=== PATIENT | male | born 1965 | race African-American/Black ===

== ENCOUNTER 2018-11-09 00:10 | Inpatient (IN) | payer MEDICAID ==
[~2018-11-09] VITALS: Ht 188 cm; Wt 98.0 kg
[2018-11-09] MEDS ORDERED: SODIUM CHLORIDE 0.9% 1,000 ML IV ONE (02:49)
[2018-11-09] MEDS ORDERED: ONDANSETRON HCL 4MG/2ML INJ IV STA (02:49)
[2018-11-09] MEDS ORDERED: MORPHINE SULFATE 4 MG/ML CPJ (NOT FOR IM USE) IV STA (02:49)
[2018-11-09 03:13] LABS: BASOPHILS % 0.9 % (0.0-2.0); EOSINOPHILS % 0.6 % (0.0-5.0); HEMATOCRIT. 45.7 % (42.0-52.0); HEMOGLOBIN. 14.6 g/dL (14.0-18.0); LYMPHOCYTES % 11.5 % (20.0-50.0); MEAN CORPUSCULAR HEMOGLOBIN 31.2 pg (28.0-32.0); MEAN CORPUSCULAR VOLUME 97.5 fL (80.0-94.0); MONOCYTES % 13.5 % (2.0-8.0); NEUTROPHILS % 73.5 % (40.0-76.0); PLATELET 120 x1000/uL (130-400); RED BLOOD CELL COUNT 4.69 mill/uL (4.7-6.1); RED CELL DISTRIBUTION WIDTH 13.1 % (11.6-14.6)
[2018-11-09 04:26] LABS: CHLORIDE 106 mEq/L (98-107)
[2018-11-09] MEDS ORDERED: CLONIDINE 0.2MG TABLET PO ONE (05:00)
[2018-11-09] MEDS ORDERED: MORPHINE SULFATE 4 MG/ML CPJ (NOT FOR IM USE) IV ONE (06:00)
[2018-11-09 09:45] VITALS: BP 138/96
[2018-11-09] MEDS ORDERED: ACETAMINOPHEN 325MG TABLET PO PRN (10:15)
[2018-11-09] MEDS ORDERED: DOCUSATE SODIUM 100MG CAPSULE PO PRN (10:15)
[2018-11-09] MEDS ORDERED: NITROGLYCERIN 0.4MG TABLET SL SL PRN (10:15)
[2018-11-09] MEDS ORDERED: GUAIFENESIN 200MG/10ML SUGAR FREE UDC PO PRN (10:15)
[2018-11-09] MEDS ORDERED: IPRATROPIUM/ALBUTEROL 0.5-3(2.5)MG/3ML NEB INH PRN (10:15)
[2018-11-09] MEDS: FAMOTIDINE 20MG TABLET PO SCH (11:01)
[2018-11-09] MEDS: ENOXAPARIN 40MG/0.4ML SYR SUBCUT SCH (11:02)
[2018-11-09] MEDS: AMLODIPINE 10MG TABLET PO SCH (11:02)
[2018-11-09] MEDS: TRAMADOL 50MG TABLET PO PRN (11:04)
[2018-11-09 12:00] VITALS: BP 177/101
[2018-11-09] MEDS: PIPERACILLIN/TAZ 3.375G PREMIX 50 ML IV SCH ×2 (12:04→20:37)
[2018-11-09] MEDS: CLONIDINE 0.1MG TABLET PO PRN ×2 (12:04→18:18)
[2018-11-09 13:00] LABS: *AMPHETAMINES SCREEN URINE NEGATIVE (NEGATIVE); *BARBITURATES SCREEN URINE NEGATIVE (NEGATIVE); *BENZODIAZEPINES SCREEN URINE NEGATIVE (NEGATIVE); *COCAINE SCREEN URINE PRESUMTIVE POSITIVE (NEGATIVE); METHADONE URINE SCREEN NEGATIVE (NEGATIVE); OPIATES URINE SCREEN NEGATIVE (NEGATIVE)
[2018-11-09 13:01] LABS: CANNABINOID URINE SCREEN PRESUMTIVE POSITIVE (NEGATIVE); PHENCYCLIDINE URINE SCREEN NEGATIVE (NEGATIVE)
[2018-11-09] MEDS ORDERED: SODIUM POLYSTYRENE SULFONATE 15 G/60 ML BOT PO NR (14:00)
[2018-11-09] MEDS: HYDRALAZINE HCL 50MG TABLET PO SCH ×2 (14:06→21:00)
[2018-11-09] MEDS: MORPHINE SULFATE 4 MG/ML CPJ (NOT FOR IM USE) IV PRN ×2 (15:28→20:59)
[2018-11-09 16:00] VITALS: BP_SYST 111; BP_SYST 191; BP_DIAS 116
[2018-11-09] MEDS ORDERED: MINOXIDIL 2.5MG TABLET PO SCH (17:15)
[2018-11-09 20:00] VITALS: BP 215/140
[2018-11-09] MEDS: METOPROLOL TARTRATE 25MG TABLET PO SCH (20:38)
[2018-11-09] MEDS: ASCORBIC ACID 500 MG TABLET PO SCH (20:39)
[2018-11-09] MEDS: ZOLPIDEM TARTRATE 5MG TABLET PO PRN (20:58)
[2018-11-09] MEDS: ONDANSETRON HCL 4MG/2ML INJ IV PRN (23:14)
[2018-11-10] VITALS: BP 226/129
[2018-11-10] MEDS: MORPHINE SULFATE 4 MG/ML CPJ (NOT FOR IM USE) IV PRN ×2 (01:02→05:05)
[2018-11-10] MEDS: CLONIDINE 0.1MG TABLET PO PRN (01:03)
[2018-11-10] MEDS ORDERED: CLONIDINE 0.2MG TABLET PO PRN (01:30)
[2018-11-10 04:00] VITALS: BP 206/144
[2018-11-10] MEDS: PIPERACILLIN/TAZ 3.375G PREMIX 50 ML IV SCH ×3 (04:50→20:24)
[2018-11-10] MEDS: HYDRALAZINE HCL 50MG TABLET PO SCH ×3 (05:06→22:46)
[2018-11-10] MEDS: ONDANSETRON HCL 4MG/2ML INJ IV PRN ×3 (05:21→20:25)
[2018-11-10] MEDS ORDERED: CLONIDINE 0.3MG TABLET PO PRN (06:45)
[2018-11-10] MEDS: AMLODIPINE 10MG TABLET PO SCH (07:32)
[2018-11-10 08:00] VITALS: BP 203/107
[2018-11-10] MEDS: ASCORBIC ACID 500 MG TABLET PO SCH ×2 (10:09→20:25)
[2018-11-10] MEDS: ENOXAPARIN 40MG/0.4ML SYR SUBCUT SCH (10:09)
[2018-11-10] MEDS: METOPROLOL TARTRATE 25MG TABLET PO SCH ×2 (10:12→20:25)
[2018-11-10] MEDS: MINOXIDIL 10MG TABLET PO SCH ×2 (10:29→17:47)
[2018-11-10 12:00] VITALS: BP 198/102
[2018-11-10] MEDS: FAMOTIDINE 20MG TABLET PO SCH (12:16)
[2018-11-10 16:00] VITALS: BP 188/89
[2018-11-10] MEDS: TRAMADOL 50MG TABLET PO PRN (17:47)
[2018-11-10 20:00] VITALS: BP 198/120
[2018-11-10] MEDS: ZOLPIDEM TARTRATE 5MG TABLET PO PRN (20:44)
[2018-11-10] MEDS ORDERED: DOXAZOSIN MESYLATE 4MG TABLET PO SCH (21:00)
[2018-11-11] VITALS: BP 134/94
[2018-11-11] MEDS: TRAMADOL 50MG TABLET PO PRN ×3 (00:17→14:10)
[2018-11-11 04:00] VITALS: BP 141/101
[2018-11-11] MEDS: PIPERACILLIN/TAZ 3.375G PREMIX 50 ML IV SCH ×2 (04:34→12:11)
[2018-11-11] MEDS: HYDRALAZINE HCL 50MG TABLET PO SCH ×2 (06:13→14:09)
[2018-11-11] MEDS: MINOXIDIL 10MG TABLET PO SCH (06:13)
[2018-11-11 08:00] VITALS: BP 133/78
[2018-11-11] MEDS: FAMOTIDINE 20MG TABLET PO SCH (09:22)
[2018-11-11] MEDS: METOPROLOL TARTRATE 25MG TABLET PO SCH (09:23)
[2018-11-11] MEDS: AMLODIPINE 10MG TABLET PO SCH (09:23)
[2018-11-11] MEDS: ASCORBIC ACID 500 MG TABLET PO SCH (09:23)
[2018-11-11] MEDS: ENOXAPARIN 40MG/0.4ML SYR SUBCUT SCH (09:24)
[2018-11-11] MEDS: ONDANSETRON HCL 4MG/2ML INJ IV PRN (09:39)
[2018-11-11 12:00] VITALS: BP 145/82
[2018-11-11 12:57] VITALS: BP 145/82
[2018-11-11 14:10] VITALS: BP 142/82
== END 2018-11-11 16:02 | disposition home or self-care (01) | DRG 199 ==
LOC: ER 00:10 → EDBEDREQ 04:57 → EDBEDREQTM 05:40 → EDBEDREQ 05:40 → ENRESERV 08:02 → 6WST 09:42
PROVIDERS: ADMIT Internal Medicine; ATTEND Internal Medicine
DX: I16.1 Hypertensive emergency (principal); N17.0 Acute kidney failure with tubular necrosis; E87.5 Hyperkalemia; K52.9 Noninfective gastroenteritis and colitis, unspecified; Z87.11 Personal history of peptic ulcer disease; I10 Essential (primary) hypertension; F14.10 Cocaine abuse, uncomplicated; F17.210 Nicotine dependence, cigarettes, uncomplicated; Z88.5 Allergy status to narcotic agent
CPT/HCPCS: 36415; 74150; 80048; 80305; 82150; 83036; 83605; 93970; 96374; 96375; 96376; 99285; C1893; J1650; J2270; J2405; J2543; J7030; J7050

== ENCOUNTER 2018-11-12 00:20 | Inpatient (IN) | payer MEDICAID ==
[~2018-11-12] VITALS: Ht 188 cm; Wt 99.3 kg
[2018-11-12] MEDS ORDERED: ONDANSETRON HCL 4MG/2ML INJ IV STA (06:14)
[2018-11-12] MEDS ORDERED: FAMOTIDINE 20MG/2ML VIAL IV STA (06:14)
[2018-11-12] MEDS ORDERED: SODIUM CHLORIDE 0.9% 1,000 ML IV ONE (06:14)
[2018-11-12 06:59] LABS: HEMATOCRIT. 46.4 % (42.0-52.0); HEMOGLOBIN. 15.4 g/dL (14.0-18.0); MEAN CORPUSCULAR HEMOGLOBIN 31.9 pg (28.0-32.0); MEAN CORPUSCULAR VOLUME 96.1 fL (80.0-94.0); RED BLOOD CELL COUNT 4.83 mill/uL (4.7-6.1); RED CELL DISTRIBUTION WIDTH 12.6 % (11.6-14.6)
[2018-11-12 07:02] LABS: PROTHROMBIN TIME 10.5 sec (9.1-11.1)
[2018-11-12 07:03] LABS: CHLORIDE 95 mEq/L (98-107)
[2018-11-12 07:10] LABS: ETHANOL BLOOD < 10 mg/dL
[2018-11-12 09:16] LABS: PLATELET ESTIMATE DECREASED
[2018-11-12 09:17] LABS: MEAN PLATELET VOLUME 10.7 fl (7.4-10.4); PLATELET 94 x1000/uL (130-400)
[2018-11-12 10:30] VITALS: BP 93/67
[2018-11-12] MEDS ORDERED: IPRATROPIUM/ALBUTEROL 0.5-3(2.5)MG/3ML NEB INH PRN (10:45)
[2018-11-12] MEDS ORDERED: ACETAMINOPHEN 650MG SUPP PR PRN (10:45)
[2018-11-12] MEDS ORDERED: MORPHINE SULFATE 2 MG/ML CPJ (NOT FOR IM USE) IV PRN (10:45)
[2018-11-12] MEDS ORDERED: LORAZEPAM 2MG/ML CPJ IV PRN (10:45)
[2018-11-12] MEDS ORDERED: DIPHENHYDRAMINE 50MG/ML VIAL IV PRN (10:45)
[2018-11-12] MEDS: SODIUM CHLORIDE 0.9% 1,000 ML IV SCH (11:21)
[2018-11-12] MEDS: PANTOPRAZOLE SODIUM 40 MG/VIAL IV SCH (11:22)
[2018-11-12] MEDS: ONDANSETRON HCL 4MG/2ML INJ IV PRN ×2 (11:22→19:54)
[2018-11-12 12:00] VITALS: BP 132/66
[2018-11-12] MEDS ORDERED: DEXT 5%/0.9% NACL KCL 20MEQ/L 1,000 ML IV SCH ×2 (15:30→18:30)
[2018-11-12] MEDS ORDERED: ENOXAPARIN 40MG/0.4ML SYR SUBCUT SCH (15:30)
[2018-11-12 18:11] LABS: CLARITY URINE CLEAR (CLEAR); COLOR URINE YELLOW (YELLOW); KETONES URINE NEGATIVE (NEGATIVE); LEUKOCYTE ESTERASE URINE NEGATIVE (NEGATIVE); NITRITE URINE NEGATIVE (NEGATIVE); OCCULT BLOOD URINE NEGATIVE (NEGATIVE); PROTEIN URINE 1+ (NEGATIVE); SPECIFIC GRAVITY URINE 1.011 (1.005-1.030); UROBILINOGEN URINE 0.2 E.U./dL (0.2-1.0)
[2018-11-12] MEDS ORDERED: KETOROLAC 15MG/ML VIAL IV PRN (18:15)
[2018-11-12 18:28] LABS: *AMPHETAMINES SCREEN URINE NEGATIVE (NEGATIVE); *BARBITURATES SCREEN URINE NEGATIVE (NEGATIVE)
[2018-11-12 18:29] LABS: *BENZODIAZEPINES SCREEN URINE NEGATIVE (NEGATIVE); *COCAINE SCREEN URINE PRESUMTIVE POSITIVE (NEGATIVE); CANNABINOID URINE SCREEN PRESUMTIVE POSITIVE (NEGATIVE); METHADONE URINE SCREEN NEGATIVE (NEGATIVE); OPIATES URINE SCREEN PRESUMTIVE POSITIVE (NEGATIVE); PHENCYCLIDINE URINE SCREEN NEGATIVE (NEGATIVE)
[2018-11-12] MEDS: KETOROLAC 15MG/ML VIAL IV PRN (19:53)
[2018-11-12 20:00] VITALS: BP 103/55
[2018-11-12] MEDS: LORAZEPAM 2MG/ML CPJ IV PRN (20:23)
[2018-11-12] MEDS: DEXT 5%/0.9% NACL 1,000 ML IV SCH (21:15)
[2018-11-13] VITALS: BP 130/83
[2018-11-13] MEDS: KETOROLAC 15MG/ML VIAL IV PRN ×3 (03:23→18:36)
[2018-11-13] MEDS: ONDANSETRON HCL 4MG/2ML INJ IV PRN ×2 (03:23→12:07)
[2018-11-13] MEDS: DEXT 5%/0.9% NACL 1,000 ML IV SCH ×3 (03:52→23:27)
[2018-11-13] MEDS: LORAZEPAM 2MG/ML CPJ IV PRN ×2 (03:53→23:27)
[2018-11-13 04:00] VITALS: BP 135/65
[2018-11-13 06:50] LABS: CHLORIDE 102 mEq/L (98-107)
[2018-11-13 06:53] LABS: HEMATOCRIT. 41.5 % (42.0-52.0); HEMOGLOBIN. 13.9 g/dL (14.0-18.0); MEAN CORPUSCULAR HEMOGLOBIN 31.7 pg (28.0-32.0); MEAN CORPUSCULAR VOLUME 94.9 fL (80.0-94.0); MEAN PLATELET VOLUME 10.1 fl (7.4-10.4); PLATELET 89 x1000/uL (130-400); RED BLOOD CELL COUNT 4.38 mill/uL (4.7-6.1); RED CELL DISTRIBUTION WIDTH 12.6 % (11.6-14.6)
[2018-11-13 07:19] LABS: LDL CHOLESTEROL 79 mg/dL (5-100)
[2018-11-13 07:21] LABS: HDL CHOLESTEROL 40 mg/dL (40-59)
[2018-11-13 08:00] VITALS: BP 121/55
[2018-11-13] MEDS: PANTOPRAZOLE SODIUM 40 MG/VIAL IV SCH (09:28)
[2018-11-13 11:57] LABS: PLATELET ESTIMATE DECREASED
[2018-11-13 12:17] VITALS: BP 155/91
[2018-11-13 16:30] VITALS: BP 159/89
[2018-11-14] MEDS: KETOROLAC 15MG/ML VIAL IV PRN ×4 (01:34→23:25)
[2018-11-14] MEDS: ONDANSETRON HCL 4MG/2ML INJ IV PRN ×3 (05:39→18:24)
[2018-11-14] MEDS: LORAZEPAM 2MG/ML CPJ IV PRN ×2 (05:40→20:40)
[2018-11-14 08:00] VITALS: BP 215/110
[2018-11-14] MEDS: PANTOPRAZOLE SODIUM 40 MG/VIAL IV SCH (08:40)
[2018-11-14] MEDS ORDERED: CLONIDINE HCL 0.3MG/24HR PATCH TD SCH (09:00)
[2018-11-14] MEDS: MINOXIDIL 2.5MG TABLET PO SCH (10:40)
[2018-11-14 12:18] VITALS: BP 185/119
[2018-11-14] MEDS: CLONIDINE 0.3MG TABLET PO PRN ×2 (12:54→20:40)
[2018-11-14 16:00] VITALS: BP 169/105
[2018-11-14] MEDS: DEXT 5%/0.9% NACL 1,000 ML IV SCH (17:18)
[2018-11-14 20:00] VITALS: BP 190/118
[2018-11-15] VITALS: BP 175/98
[2018-11-15 04:00] VITALS: BP 159/87
[2018-11-15] MEDS: ONDANSETRON HCL 4MG/2ML INJ IV PRN (05:10)
[2018-11-15] MEDS: KETOROLAC 15MG/ML VIAL IV PRN ×2 (05:11→21:09)
[2018-11-15 08:00] VITALS: BP 166/110
[2018-11-15] MEDS: MINOXIDIL 2.5MG TABLET PO SCH (09:12)
[2018-11-15] MEDS: PANTOPRAZOLE SODIUM 40 MG/VIAL IV SCH (09:12)
[2018-11-15] MEDS ORDERED: SKIN ADHESIVE 0.7 GM EA TOP ONE (09:37)
[2018-11-15] MEDS ORDERED: BUPIVACAINE HCL 0.5% (5MG/ML) 50ML ONE (09:38)
[2018-11-15] MEDS ORDERED: ACETAMINOPHEN 650MG SUPP PR PRN (10:45)
[2018-11-15] MEDS ORDERED: MORPHINE SULFATE 2 MG/ML CPJ (NOT FOR IM USE) IV PRN (10:45)
[2018-11-15] MEDS ORDERED: FENTANYL CITRATE/PF 50MCG/ML 2ML VIAL ONE (11:11)
[2018-11-15] MEDS ORDERED: ROCURONIUM BROMIDE 10MG/ML VIAL 5ML IV ONE ×2 (11:11→11:50)
[2018-11-15] MEDS ORDERED: MIDAZOLAM HCL 2 MG/2 ML VIAL ONE (11:11)
[2018-11-15] MEDS ORDERED: PROPOFOL 200MG/20ML VIAL IV ONE (11:11)
[2018-11-15] MEDS ORDERED: SUCCINYLCHOLINE CHLORIDE 200MG/10ML IV ONE (11:14)
[2018-11-15] MEDS ORDERED: LEVOFLOXACIN 500MG PREMIX 100 ML IV ONE (12:01)
[2018-11-15] MEDS ORDERED: BUPIVACAINE HCL 0.5% 290 ML in ON-Q PM025 DRUG DELIV DEVICE 1 EA IR SCH (12:30)
[2018-11-15] MEDS ORDERED: BACITRACIN 15GM TUBE TOP ONE (12:38)
[2018-11-15] MEDS ORDERED: BUPIVACAINE HCL 0.5% 290 ML in ON-Q PUMP (PM015=P270X4D) IR NR (12:45)
[2018-11-15] MEDS ORDERED: DEXT 5%/0.45% NACL KCL 20MEQ/L 1,000 ML IV SCH (13:00)
[2018-11-15] MEDS ORDERED: MEPERIDINE HCL/PF 25MG/ML CPJ IV PRN (15:00)
[2018-11-15] MEDS ORDERED: ONDANSETRON HCL 4MG/2ML INJ IV PRN (15:00)
[2018-11-15] MEDS ORDERED: HYDRALAZINE 20MG/ML VIAL IV PRN (15:15)
[2018-11-15] MEDS: LABETALOL 5MG/ML SYR 20 MG/4 ML SYRINGE IV PRN ×2 (15:28→16:07)
[2018-11-15] MEDS: HYDROMORPHONE HCL/PF 2MG/ML CPJ IV PRN ×4 (16:50→18:09)
[2018-11-15 17:50] LABS: BG BASE EXCESS -6.2 mmol/L (-2.0-2.0); BG BILEVEL POS AIRWAY PRESSURE 15/5; BG CARBOXYHEMOGLOBIN 0.6 % (0.5-1.5); BG DEOXYHEMOGLOBIN 2.4 % (0.0-5.0); BG FRACTION INSPIRED OXYGEN 100; BG HCO3 ACT 19.8 mmol/L (22.0-26.0); BG METHEMOGLOBIN 0.3 % (0.0-1.5); BG OXYGEN SATURATION 97.6 % (92.0-98.5); BG OXYHEMOGLOBIN 96.7 % (94.0-97.0); BG PCO2 40.5 mmHg (35.0-45.0); BG PH 7.306 (7.350-7.450); BG PO2 106.7 mmHg (75.0-100.0); BG SAMPLE SITE RIGHT BRACHIAL; BG TOTAL HEMOGLOBIN 15.5 g/dL (12.0-18.0); BG VENT MODE MASK - BIPAP
[2018-11-15] MEDS: SODIUM CHLORIDE 0.9% 1,000 ML IV SCH ×2 (18:45→23:46)
[2018-11-15 18:57] VITALS: BP 123/80
[2018-11-15 19:44] LABS: HEMATOCRIT. 45.1 % (42.0-52.0); HEMOGLOBIN. 14.5 g/dL (14.0-18.0); MEAN CORPUSCULAR VOLUME 96.2 fL (80.0-94.0); PLATELET 119 x1000/uL (130-400); RED BLOOD CELL COUNT 4.69 mill/uL (4.7-6.1); RED CELL DISTRIBUTION WIDTH 12.8 % (11.6-14.6)
[2018-11-15 20:02] LABS: PLATELET ESTIMATE DECREASED
[2018-11-15] MEDS ORDERED: LEVOFLOXACIN 500MG PREMIX 100 ML IV SCH (21:00)
[2018-11-15] MEDS ORDERED: METRONIDAZOLE 500 MG PREMIX 100 ML IV SCH (21:00)
[2018-11-15 21:51] LABS: BG BASE EXCESS -6.9 mmol/L (-2.0-2.0); BG CARBOXYHEMOGLOBIN 0.3 % (0.5-1.5); BG FRACTION INSPIRED OXYGEN 100; BG HCO3 ACT 18.2 mmol/L (22.0-26.0); BG METHEMOGLOBIN 0.3 % (0.0-1.5); BG OXYHEMOGLOBIN 98.4 % (94.0-97.0); BG PCO2 35.7 mmHg (35.0-45.0); BG PH 7.325 (7.350-7.450); BG PO2 170.8 mmHg (75.0-100.0); BG SAMPLE SITE RIGHT RADIAL; BG TOTAL HEMOGLOBIN 15.6 g/dL (12.0-18.0); BG VENT MODE MASK - BIPAP; BG VENT RATE 14 set
[2018-11-15] MEDS: MORPHINE SULFATE 4 MG/ML CPJ (NOT FOR IM USE) IV PRN (23:45)
[2018-11-15 23:50] VITALS: BP 135/72
[2018-11-16] VITALS (21 sets, daily range): BP systolic 121–157; BP diastolic 57–95
[2018-11-16] MEDS: MORPHINE SULFATE 4 MG/ML CPJ (NOT FOR IM USE) IV PRN ×7 (05:16→23:27)
[2018-11-16] MEDS: SODIUM CHLORIDE 0.9% 1,000 ML IV SCH ×2 (05:17→14:46)
[2018-11-16] MEDS: METRONIDAZOLE 500 MG PREMIX 100 ML IV SCH ×4 (06:32→21:44)
[2018-11-16] MEDS: FAMOTIDINE 20MG/2ML VIAL IV SCH (08:34)
[2018-11-16] MEDS: MINOXIDIL 2.5MG TABLET PO SCH (08:38)
[2018-11-16] MEDS: IPRATROPIUM/ALBUTEROL 0.5-3(2.5)MG/3ML NEB HHN SCH ×5 (09:07→23:42)
[2018-11-16] MEDS ORDERED: SODIUM BICARBONATE 8.4% 1 MEQ/ML 50ML SYR IV NR (10:00)
[2018-11-16] MEDS: LEVOFLOXACIN 250MG PREMIX 50 ML IV SCH (11:47)
[2018-11-16] MEDS: ENOXAPARIN 40MG/0.4ML SYR SUBCUT SCH (11:48)
[2018-11-16] MEDS: ONDANSETRON HCL 4MG/2ML INJ IV PRN (14:26)
[2018-11-16] MEDS: ACETYLCYSTEINE 100MG/ML 10% VIAL 4ML INH SCH ×2 (15:59→23:41)
[2018-11-16] MEDS: ACETAMINOPHEN 650MG SUPP PR PRN (22:08)
[2018-11-17] VITALS: BP 160/87
[2018-11-17] MEDS: SODIUM CHLORIDE 0.9% 1,000 ML IV SCH ×2 (02:16→08:33)
[2018-11-17] MEDS: ONDANSETRON HCL 4MG/2ML INJ IV PRN (02:16)
[2018-11-17 04:00] VITALS: BP 137/76
[2018-11-17] MEDS: IPRATROPIUM/ALBUTEROL 0.5-3(2.5)MG/3ML NEB HHN SCH ×5 (04:13→20:54)
[2018-11-17] MEDS: METRONIDAZOLE 500 MG PREMIX 100 ML IV SCH ×3 (05:09→23:01)
[2018-11-17] MEDS: KETOROLAC 15MG/ML VIAL IV PRN (06:31)
[2018-11-17 06:58] LABS: HEMATOCRIT. 40.3 % (42.0-52.0); HEMOGLOBIN. 13.3 g/dL (14.0-18.0); MEAN CORPUSCULAR HEMOGLOBIN 31.5 pg (28.0-32.0); MEAN CORPUSCULAR VOLUME 95.3 fL (80.0-94.0); MEAN PLATELET VOLUME 9.7 fl (7.4-10.4); PLATELET 158 x1000/uL (130-400); RED BLOOD CELL COUNT 4.23 mill/uL (4.7-6.1)
[2018-11-17 07:44] LABS: PHOSPHORUS 2.6 mg/dL (2.5-4.9)
[2018-11-17] MEDS: ACETYLCYSTEINE 100MG/ML 10% VIAL 4ML INH SCH ×2 (07:49→15:42)
[2018-11-17 08:00] VITALS: BP 148/80
[2018-11-17] MEDS: FAMOTIDINE 20MG/2ML VIAL IV SCH (08:32)
[2018-11-17] MEDS: MORPHINE SULFATE 4 MG/ML CPJ (NOT FOR IM USE) IV PRN ×3 (08:32→20:42)
[2018-11-17] MEDS: MINOXIDIL 2.5MG TABLET PO SCH (08:32)
[2018-11-17] MEDS: ENOXAPARIN 40MG/0.4ML SYR SUBCUT SCH (08:32)
[2018-11-17] MEDS ORDERED: ENOXAPARIN 30MG/0.3ML SYR SUBCUT SCH (09:00)
[2018-11-17 10:39] LABS: PLATELET ESTIMATE NORMAL
[2018-11-17 12:01] VITALS: BP 151/101
[2018-11-17] MEDS: SODIUM CHLORIDE 0.45% 1,000 ML IV SCH (12:37)
[2018-11-17] MEDS: LEVOFLOXACIN 250MG PREMIX 50 ML IV SCH (12:37)
[2018-11-17 16:00] VITALS: BP_SYST 163; BP_SYST 166; BP_DIAS 104; BP_DIAS 80
[2018-11-17] MEDS: CLONIDINE 0.3MG TABLET PO PRN (20:48)
[2018-11-18] MEDS: ACETYLCYSTEINE 100MG/ML 10% VIAL 4ML INH SCH ×3 (00:27→14:00)
[2018-11-18] MEDS: IPRATROPIUM/ALBUTEROL 0.5-3(2.5)MG/3ML NEB HHN SCH ×6 (00:30→21:10)
[2018-11-18] MEDS: MORPHINE SULFATE 4 MG/ML CPJ (NOT FOR IM USE) IV PRN ×6 (01:04→21:30)
[2018-11-18] MEDS: METRONIDAZOLE 500 MG PREMIX 100 ML IV SCH ×3 (05:41→21:43)
[2018-11-18] MEDS: SODIUM CHLORIDE 0.45% 1,000 ML IV SCH (05:46)
[2018-11-18 06:45] LABS: HEMATOCRIT. 38.3 % (42.0-52.0); HEMOGLOBIN. 12.7 g/dL (14.0-18.0); MEAN CORPUSCULAR HEMOGLOBIN 31.5 pg (28.0-32.0); MEAN PLATELET VOLUME 9.3 fl (7.4-10.4); PLATELET 183 x1000/uL (130-400); RED BLOOD CELL COUNT 4.04 mill/uL (4.7-6.1)
[2018-11-18 07:39] LABS: PHOSPHORUS 2.4 mg/dL (2.5-4.9)
[2018-11-18 08:00] VITALS: BP 171/96
[2018-11-18 08:16] LABS: PLATELET ESTIMATE NORMAL
[2018-11-18] MEDS: CLONIDINE 0.3MG TABLET PO PRN (08:25)
[2018-11-18] MEDS: MINOXIDIL 2.5MG TABLET PO SCH ×2 (08:27→21:00)
[2018-11-18] MEDS: ENOXAPARIN 40MG/0.4ML SYR SUBCUT SCH (08:28)
[2018-11-18] MEDS: FAMOTIDINE 20MG/2ML VIAL IV SCH (08:28)
[2018-11-18 08:55] LABS: BG BASE EXCESS -2.8 mmol/L (-2.0-2.0); BG CARBOXYHEMOGLOBIN 1.1 % (0.5-1.5); BG DEOXYHEMOGLOBIN 15.2 % (0.0-5.0); BG FRACTION INSPIRED OXYGEN 21; BG HCO3 ACT 21.2 mmol/L (22.0-26.0); BG METHEMOGLOBIN 0.4 % (0.0-1.5); BG OXYGEN SATURATION 84.6 % (92.0-98.5); BG OXYHEMOGLOBIN 83.3 % (94.0-97.0); BG PCO2 34.7 mmHg (35.0-45.0); BG PH 7.404 (7.350-7.450); BG PO2 49.7 mmHg (75.0-100.0); BG SAMPLE SITE RIGHT BRACHIAL; BG TOTAL HEMOGLOBIN 13.4 g/dL (12.0-18.0); BG VENT MODE ROOM AIR
[2018-11-18] MEDS ORDERED: FUROSEMIDE 20MG/2ML VIAL IVP NR (10:15)
[2018-11-18 12:07] VITALS: BP 157/97
[2018-11-18] MEDS: LEVOFLOXACIN 250MG PREMIX 50 ML IV SCH (12:32)
[2018-11-18 16:08] VITALS: BP 140/76
[2018-11-18] MEDS: ONDANSETRON HCL 4MG/2ML INJ IV PRN ×2 (16:53→22:19)
[2018-11-18 20:00] VITALS: BP 178/106
[2018-11-18] MEDS ORDERED: HYDRALAZINE 20MG/ML VIAL IV PRN (21:00)
[2018-11-18] MEDS: NITROGLYCERIN OINT 1GM/INCH UDPKT TD SCH (21:43)
[2018-11-19] VITALS (7 sets, daily range): BP systolic 135–180; BP diastolic 56–107
[2018-11-19] MEDS: IPRATROPIUM/ALBUTEROL 0.5-3(2.5)MG/3ML NEB HHN SCH ×6 (00:42→21:25)
[2018-11-19] MEDS: ACETYLCYSTEINE 100MG/ML 10% VIAL 4ML INH SCH ×3 (00:46→14:48)
[2018-11-19] MEDS: MORPHINE SULFATE 4 MG/ML CPJ (NOT FOR IM USE) IV PRN ×7 (01:11→23:48)
[2018-11-19] MEDS: ONDANSETRON HCL 4MG/2ML INJ IV PRN ×5 (02:57→21:25)
[2018-11-19] MEDS: METRONIDAZOLE 500 MG PREMIX 100 ML IV SCH ×3 (06:17→21:35)
[2018-11-19] MEDS: NITROGLYCERIN OINT 1GM/INCH UDPKT TD SCH ×3 (06:17→21:33)
[2018-11-19 06:42] LABS: HEMATOCRIT. 37.3 % (42.0-52.0); HEMOGLOBIN. 12.4 g/dL (14.0-18.0); MEAN CORPUSCULAR HEMOGLOBIN 31.4 pg (28.0-32.0); MEAN CORPUSCULAR VOLUME 94.8 fL (80.0-94.0); MEAN PLATELET VOLUME 9.4 fl (7.4-10.4); PLATELET 199 x1000/uL (130-400); RED BLOOD CELL COUNT 3.93 mill/uL (4.7-6.1); RED CELL DISTRIBUTION WIDTH 13.1 % (11.6-14.6)
[2018-11-19 07:41] LABS: PHOSPHORUS 3.3 mg/dL (2.5-4.9)
[2018-11-19 08:52] LABS: BG BASE EXCESS -0.9 mmol/L (-2.0-2.0); BG DEOXYHEMOGLOBIN 9.6 % (0.0-5.0); BG FRACTION INSPIRED OXYGEN 21; BG HCO3 ACT 22.8 mmol/L (22.0-26.0); BG METHEMOGLOBIN 0.4 % (0.0-1.5); BG OXYGEN SATURATION 90.3 % (92.0-98.5); BG PCO2 34.8 mmHg (35.0-45.0); BG PH 7.434 (7.350-7.450); BG PO2 59.3 mmHg (75.0-100.0); BG SAMPLE SITE RIGHT BRACHIAL; BG TOTAL HEMOGLOBIN 13.2 g/dL (12.0-18.0); BG VENT MODE ROOM AIR
[2018-11-19] MEDS: MINOXIDIL 2.5MG TABLET PO SCH ×2 (09:00→21:00)
[2018-11-19] MEDS: ENOXAPARIN 40MG/0.4ML SYR SUBCUT SCH (09:24)
[2018-11-19] MEDS: FAMOTIDINE 20MG/2ML VIAL IV SCH (09:24)
[2018-11-19] MEDS: LEVOFLOXACIN 250MG PREMIX 50 ML IV SCH (11:28)
[2018-11-19 12:15] LABS: PLATELET ESTIMATE NORMAL
[2018-11-19] MEDS ORDERED: FUROSEMIDE 20MG/2ML VIAL IVP NR (14:30)
[2018-11-20] VITALS (7 sets, daily range): BP systolic 149–176; BP diastolic 75–114
[2018-11-20] MEDS: ACETYLCYSTEINE 100MG/ML 10% VIAL 4ML INH SCH ×3 (01:16→16:47)
[2018-11-20] MEDS: IPRATROPIUM/ALBUTEROL 0.5-3(2.5)MG/3ML NEB HHN SCH ×5 (01:17→16:48)
[2018-11-20] MEDS: ONDANSETRON HCL 4MG/2ML INJ IV PRN ×5 (03:39→21:43)
[2018-11-20] MEDS: MORPHINE SULFATE 4 MG/ML CPJ (NOT FOR IM USE) IV PRN ×6 (04:46→21:43)
[2018-11-20] MEDS: NITROGLYCERIN OINT 1GM/INCH UDPKT TD SCH ×3 (06:15→21:46)
[2018-11-20] MEDS: METRONIDAZOLE 500 MG PREMIX 100 ML IV SCH ×3 (06:15→22:52)
[2018-11-20 07:04] LABS: HEMATOCRIT. 35.2 % (42.0-52.0); HEMOGLOBIN. 11.6 g/dL (14.0-18.0); MEAN CORPUSCULAR HEMOGLOBIN 31.2 pg (28.0-32.0); MEAN CORPUSCULAR VOLUME 94.6 fL (80.0-94.0); MEAN PLATELET VOLUME 10.2 fl (7.4-10.4); PLATELET 230 x1000/uL (130-400); RED BLOOD CELL COUNT 3.73 mill/uL (4.7-6.1)
[2018-11-20 07:51] LABS: PHOSPHORUS 3.2 mg/dL (2.5-4.9)
[2018-11-20] MEDS: ENOXAPARIN 40MG/0.4ML SYR SUBCUT SCH (08:57)
[2018-11-20] MEDS: FAMOTIDINE 20MG/2ML VIAL IV SCH (09:00)
[2018-11-20] MEDS: MINOXIDIL 2.5MG TABLET PO SCH ×2 (09:00→23:07)
[2018-11-20] MEDS: LEVOFLOXACIN 750MG PREMIX 150 ML IV SCH (11:21)
[2018-11-20] MEDS: HYDRALAZINE 10 MG in SODIUM CHLORIDE 0.9% 49.5 ML IV PRN (17:04)
[2018-11-20] MEDS ORDERED: HYDRALAZINE 20MG/ML VIAL IV SCH (18:00)
[2018-11-20] MEDS ORDERED: CLONIDINE HCL 0.3MG/24HR PATCH TD SCH (19:00)
[2018-11-21] VITALS: BP 187/115
[2018-11-21] MEDS: MORPHINE SULFATE 4 MG/ML CPJ (NOT FOR IM USE) IV PRN ×7 (01:12→21:12)
[2018-11-21] MEDS: ONDANSETRON HCL 4MG/2ML INJ IV PRN ×4 (03:06→17:52)
[2018-11-21 03:26] LABS: PLATELET ESTIMATE NORMAL
[2018-11-21] MEDS: HYDRALAZINE 10 MG in SODIUM CHLORIDE 0.9% 49.5 ML IV PRN (03:56)
[2018-11-21 04:00] VITALS: BP 208/107
[2018-11-21] MEDS: METRONIDAZOLE 500 MG PREMIX 100 ML IV SCH ×3 (06:32→21:10)
[2018-11-21] MEDS: NITROGLYCERIN OINT 1GM/INCH UDPKT TD SCH ×3 (06:33→21:11)
[2018-11-21 07:28] LABS: MEAN CORPUSCULAR VOLUME 94.7 fL (80.0-94.0); MEAN PLATELET VOLUME 10.5 fl (7.4-10.4); PLATELET 265 x1000/uL (130-400); RED BLOOD CELL COUNT 4.39 mill/uL (4.7-6.1); RED CELL DISTRIBUTION WIDTH 12.8 % (11.6-14.6)
[2018-11-21 07:41] LABS: HEMATOCRIT. 41.5 % (42.0-52.0); HEMOGLOBIN. 13.6 g/dL (14.0-18.0)
[2018-11-21 08:00] VITALS: BP 171/99
[2018-11-21] MEDS: FAMOTIDINE 20MG/2ML VIAL IV SCH (08:00)
[2018-11-21] MEDS: ACETAMINOPHEN 650MG SUPP PR PRN (08:00)
[2018-11-21] MEDS: MINOXIDIL 2.5MG TABLET PO SCH ×2 (08:01→21:10)
[2018-11-21] MEDS: ENOXAPARIN 40MG/0.4ML SYR SUBCUT SCH (08:49)
[2018-11-21] MEDS ORDERED: CLONIDINE HCL 0.3MG/24HR PATCH TD SCH (09:00)
[2018-11-21] MEDS: LEVOFLOXACIN 750MG PREMIX 150 ML IV SCH (11:08)
[2018-11-21 12:00] VITALS: BP 163/93
[2018-11-21] MEDS ORDERED: SODIUM CHL 0.45% + KCL 20MEQ/L 1,000 ML IV SCH (12:00)
[2018-11-21 12:44] LABS: PLATELET ESTIMATE NORMAL
[2018-11-21 16:00] VITALS: BP 161/104
[2018-11-21 20:00] VITALS: BP 166/94
[2018-11-21] MEDS: IPRATROPIUM/ALBUTEROL 0.5-3(2.5)MG/3ML NEB HHN SCH (20:00)
[2018-11-21] MEDS: DEXT 5%/0.45% NACL 1000ML 1,000 ML IV SCH (21:29)
[2018-11-22] VITALS: BP 146/69
[2018-11-22] MEDS: IPRATROPIUM/ALBUTEROL 0.5-3(2.5)MG/3ML NEB HHN SCH ×5 (00:26→21:59)
[2018-11-22 04:00] VITALS: BP_SYST 111; BP_SYST 152; BP_DIAS 56; BP_DIAS 60
[2018-11-22] MEDS: MORPHINE SULFATE 4 MG/ML CPJ (NOT FOR IM USE) IV PRN ×3 (04:17→22:28)
[2018-11-22] MEDS: METRONIDAZOLE 500 MG PREMIX 100 ML IV SCH ×3 (05:23→22:26)
[2018-11-22] MEDS: NITROGLYCERIN OINT 1GM/INCH UDPKT TD SCH ×3 (05:24→22:27)
[2018-11-22] MEDS: DEXT 5%/0.45% NACL 1000ML 1,000 ML IV SCH ×2 (06:31→10:27)
[2018-11-22 06:47] LABS: HEMATOCRIT. 36.6 % (42.0-52.0); HEMOGLOBIN. 12.2 g/dL (14.0-18.0); MEAN CORPUSCULAR HEMOGLOBIN 31.5 pg (28.0-32.0); MEAN CORPUSCULAR VOLUME 94.7 fL (80.0-94.0); MEAN PLATELET VOLUME 10.4 fl (7.4-10.4); PLATELET 251 x1000/uL (130-400); RED BLOOD CELL COUNT 3.86 mill/uL (4.7-6.1); RED CELL DISTRIBUTION WIDTH 12.9 % (11.6-14.6)
[2018-11-22 08:00] VITALS: BP 143/92
[2018-11-22] MEDS: ENOXAPARIN 40MG/0.4ML SYR SUBCUT SCH (09:26)
[2018-11-22] MEDS: MINOXIDIL 2.5MG TABLET PO SCH ×2 (09:27→20:49)
[2018-11-22] MEDS: FAMOTIDINE 20MG/2ML VIAL IV SCH (09:27)
[2018-11-22] MEDS: LEVOFLOXACIN 750MG PREMIX 150 ML IV SCH (10:27)
[2018-11-22 12:00] VITALS: BP 150/80
[2018-11-22 14:01] LABS: PLATELET ESTIMATE NORMAL
[2018-11-22 16:00] VITALS: BP 151/85
[2018-11-22 20:00] VITALS: BP 150/90
[2018-11-23] MEDS: DEXT 5%/0.45% NACL 1000ML 1,000 ML IV SCH (02:22)
[2018-11-23 04:00] VITALS: BP 139/65
[2018-11-23] MEDS: IPRATROPIUM/ALBUTEROL 0.5-3(2.5)MG/3ML NEB HHN SCH ×2 (05:49→08:34)
[2018-11-23] MEDS ORDERED: NITROGLYCERIN OINT 1GM/INCH UDPKT TD SCH (06:00)
[2018-11-23 06:36] LABS: HEMATOCRIT. 35.2 % (42.0-52.0); HEMOGLOBIN. 11.6 g/dL (14.0-18.0); MEAN CORPUSCULAR HEMOGLOBIN 31.1 pg (28.0-32.0); MEAN CORPUSCULAR VOLUME 94.8 fL (80.0-94.0); MEAN PLATELET VOLUME 10.3 fl (7.4-10.4); PLATELET 254 x1000/uL (130-400); RED BLOOD CELL COUNT 3.72 mill/uL (4.7-6.1); RED CELL DISTRIBUTION WIDTH 12.9 % (11.6-14.6)
[2018-11-23 06:47] LABS: PHOSPHORUS 3.2 mg/dL (2.5-4.9)
[2018-11-23 08:00] VITALS: BP 141/82
[2018-11-23] MEDS: FAMOTIDINE 20MG/2ML VIAL IV SCH (09:05)
[2018-11-23] MEDS: ENOXAPARIN 40MG/0.4ML SYR SUBCUT SCH (09:05)
[2018-11-23] MEDS: MINOXIDIL 2.5MG TABLET PO SCH (09:08)
[2018-11-23 12:00] VITALS: BP 159/93
[2018-11-23 15:06] VITALS: BP 159/93
[2018-11-23 16:00] VITALS: BP 132/82
[2018-11-23 18:08] LABS: NUCLEATED RED BLOOD CELLS 1 /100 WBC; PLATELET ESTIMATE NORMAL
[2018-11-27] MEDS ORDERED: CLONIDINE HCL 0.3MG/24HR PATCH TD SCH (09:00)
== END 2018-11-23 16:07 | disposition home or self-care (01) | DRG 230 ==
LOC: ER 00:20 → 6EST 08:30 → ER 10:20 → 5EST 11-15 22:05 → 6EST 11-17 16:30
PROVIDERS: ADMIT Internal Medicine; ATTEND Internal Medicine
PROC: 0D9670Z Drainage of Stomach with Drainage Device, Via Natural or Artificial Opening (ICD-10-PCS; 2018-11-12)
PROC: 0DB80ZZ Excision of Small Intestine, Open Approach (ICD-10-PCS; principal; 2018-11-15)
PROC: 5A09357 Assistance with Respiratory Ventilation, Less than 24 Consecutive Hours, Continuous Positive Airway Pressure (ICD-10-PCS; 2018-11-15)
DX: K56.51 Intestinal adhesions [bands], with partial obstruction (principal); N17.0 Acute kidney failure with tubular necrosis; J96.01 Acute respiratory failure with hypoxia; J69.0 Pneumonitis due to inhalation of food and vomit; A41.9 Sepsis, unspecified organism; K55.9 Vascular disorder of intestine, unspecified; E44.0 Moderate protein-calorie malnutrition; E87.1 Hypo-osmolality and hyponatremia; G89.29 Other chronic pain; F41.9 Anxiety disorder, unspecified; I12.9 Hypertensive chronic kidney disease with stage 1 through stage 4 chronic kidney disease, or unspecified chronic kidney disease; F14.129 Cocaine abuse with intoxication, unspecified; F17.210 Nicotine dependence, cigarettes, uncomplicated; K56.7 Ileus, unspecified; N18.9 Chronic kidney disease, unspecified; R18.8 Other ascites; Z82.49 Family history of ischemic heart disease and other diseases of the circulatory system; Z87.11 Personal history of peptic ulcer disease; Z88.6 Allergy status to analgesic agent; Z68.28 Body mass index [BMI] 28.0-28.9, adult; F12.10 Cannabis abuse, uncomplicated
CPT/HCPCS: 36415; 36600; 71045; 71250; 74018; 74021; 74176; 80048; 80061; 80305; 82375; 82550; 82805; 82962; 83036; 83735; 84100; 84439; 84443; 88307; 93970; 94002; 94640; 96365; 96375; 97116; 97162; 97535; 99285; C1893; C9113; J0330; J0360; J1170; J1650; J1885; J1940; J1956; J2060; J2250; J2270; J2405; J2704; J3010; J3480; J3490; J7030; J7040; J7042; J7608; J7620

== ENCOUNTER 2018-12-10 04:19 | Emergency (ER) | payer MEDICAID ==
[~2018-12-10] VITALS: Ht 188 cm; Wt 95.0 kg
[2018-12-10 05:23] LABS: BASOPHILS % 1.2 % (0.0-2.0); EOSINOPHILS % 6.8 % (0.0-5.0); HEMOGLOBIN. 10.2 g/dL (14.0-18.0); LYMPHOCYTES % 39.1 % (20.0-50.0); MEAN CORPUSCULAR HEMOGLOBIN 31.3 pg (28.0-32.0); MEAN CORPUSCULAR VOLUME 94.8 fL (80.0-94.0); MEAN PLATELET VOLUME 8.1 fl (7.4-10.4); MONOCYTES % 14.1 % (2.0-8.0); NEUTROPHILS % 38.8 % (40.0-76.0); PLATELET 270 x1000/uL (130-400); RED BLOOD CELL COUNT 3.27 mill/uL (4.7-6.1); RED CELL DISTRIBUTION WIDTH 13.1 % (11.6-14.6)
[2018-12-10 05:24] LABS: CHLORIDE 110 mEq/L (98-107)
[2018-12-10 05:38] LABS: D-DIMER 1.7 mg/L FEU (<0.50); PARTIAL THROMBOPLASTIN TIME 27.7 sec (23.4-31.0); PROTHROMBIN TIME 9.8 sec (9.1-11.1)
[2018-12-10] MEDS ORDERED: DIAZEPAM 5 MG TABLET PO ONE (07:45)
[2018-12-10 09:25] VITALS: BP 120/75
== END 2018-12-10 09:26 | disposition home or self-care (01) ==
LOC: ER 04:19
DX: E87.8 Other disorders of electrolyte and fluid balance, not elsewhere classified (principal); M54.41 Lumbago with sciatica, right side; N18.9 Chronic kidney disease, unspecified; I12.9 Hypertensive chronic kidney disease with stage 1 through stage 4 chronic kidney disease, or unspecified chronic kidney disease; M79.604 Pain in right leg; F17.200 Nicotine dependence, unspecified, uncomplicated; Z88.5 Allergy status to narcotic agent; Z88.8 Allergy status to other drugs, medicaments and biological substances; Z98.890 Other specified postprocedural states
CPT/HCPCS: 36415; 71045; 83605; 83880; 84484; 85379; 93005; 93970; 99284

== ENCOUNTER 2019-10-02 06:07 | Inpatient (IN) | payer MEDICAID ==
[~2019-10-02] VITALS: Ht 167.6 cm; Wt 89.4 kg
[2019-10-02] MEDS ORDERED: LABETALOL 5MG/ML SYR 20 MG/4 ML SYRINGE IV ONE ×2 (08:00→10:45)
[2019-10-02] MEDS ORDERED: LABETALOL HCL 100MG TABLET PO ONE (08:00)
[2019-10-02] MEDS ORDERED: CLONIDINE 0.2MG TABLET PO ONE (10:00)
[2019-10-02 11:56] LABS: BASOPHILS % 1.4 % (0.0-2.0); EOSINOPHILS % 0.9 % (0.0-5.0); HEMATOCRIT. 41.7 % (42.0-52.0); HEMOGLOBIN. 14.1 g/dL (14.0-18.0); MEAN CORPUSCULAR HEMOGLOBIN 32.6 pg (28.0-32.0); MEAN CORPUSCULAR VOLUME 96.6 fL (80.0-94.0); MONOCYTES % 8.3 % (2.0-8.0); NEUTROPHILS % 62.4 % (40.0-76.0); RED BLOOD CELL COUNT 4.32 mill/uL (4.7-6.1); RED CELL DISTRIBUTION WIDTH 13.1 % (11.6-14.6)
[2019-10-02 12:32] LABS: PLATELET 123 x1000/uL (130-400)
[2019-10-02] MEDS ORDERED: DOCUSATE SODIUM 100MG CAPSULE PO PRN (13:45)
[2019-10-02] MEDS ORDERED: IPRATROPIUM/ALBUTEROL 0.5-3(2.5)MG/3ML NEB HHN PRN (13:45)
[2019-10-02] MEDS ORDERED: LORAZEPAM 0.5MG TABLET PO PRN (13:45)
[2019-10-02] MEDS ORDERED: ONDANSETRON HCL 4MG/2ML INJ IV PRN (13:45)
[2019-10-02] MEDS: NICOTINE 14MG PATCH TD SCH (17:20)
[2019-10-02 18:20] VITALS: BP 175/120
[2019-10-02 18:40] VITALS: BP 177/114
[2019-10-02 19:00] VITALS: BP 163/106
[2019-10-02] MEDS: CLONIDINE 0.1MG TABLET PO PRN (19:18)
[2019-10-02 20:00] VITALS: BP 169/104
[2019-10-02] MEDS ORDERED: PNEUMOCOCCAL 23-VAL P-SAC VAC 0.5 ML IM ONE (20:30)
[2019-10-02] MEDS ORDERED: ASPI-1497 MT (20:33)
[2019-10-02] MEDS ORDERED: AMLO10TA80 MT (20:33)
[2019-10-02] MEDS ORDERED: HYDR-4135 MT (20:33)
[2019-10-02] MEDS ORDERED: FAMO20TA8 MT (20:33)
[2019-10-02] MEDS ORDERED: DOXA4TAB3 MT (20:33)
[2019-10-03] VITALS (7 sets, daily range): BP systolic 135–167; BP diastolic 78–109
[2019-10-03] MEDS: ACETAMINOPHEN 325MG TABLET PO PRN (00:26)
[2019-10-03 02:09] LABS: CLARITY URINE CLEAR (CLEAR); COLOR URINE YELLOW (YELLOW); KETONES URINE NEGATIVE (NEGATIVE); LEUKOCYTE ESTERASE URINE NEGATIVE (NEGATIVE); NITRITE URINE NEGATIVE (NEGATIVE); OCCULT BLOOD URINE NEGATIVE (NEGATIVE); PROTEIN URINE 1+ (NEGATIVE); SPECIFIC GRAVITY URINE 1.008 (1.005-1.030); UROBILINOGEN URINE 0.2 E.U./dL (0.2-1.0)
[2019-10-03 02:17] LABS: *AMPHETAMINES SCREEN URINE NEGATIVE (NEGATIVE); *BARBITURATES SCREEN URINE NEGATIVE (NEGATIVE); *BENZODIAZEPINES SCREEN URINE NEGATIVE (NEGATIVE)
[2019-10-03 02:18] LABS: *COCAINE SCREEN URINE PRESUMTIVE POSITIVE (NEGATIVE); METHADONE URINE SCREEN NEGATIVE (NEGATIVE); OPIATES URINE SCREEN NEGATIVE (NEGATIVE); PHENCYCLIDINE URINE SCREEN NEGATIVE (NEGATIVE)
[2019-10-03 02:19] LABS: CANNABINOID URINE SCREEN PRESUMTIVE POSITIVE (NEGATIVE)
[2019-10-03] MEDS: HYDROCODONE/ACETAMINOPHEN 5/325MG TABLET PO PRN ×3 (04:06→20:19)
[2019-10-03 06:01] LABS: PHOSPHORUS 4.5 mg/dL (2.5-4.9)
[2019-10-03 08:44] LABS: BASOPHILS % 1.2 % (0.0-2.0); EOSINOPHILS % 3.4 % (0.0-5.0); HEMATOCRIT. 37.5 % (42.0-52.0); HEMOGLOBIN. 12.6 g/dL (14.0-18.0); LYMPHOCYTES % 50.8 % (20.0-50.0); MEAN CORPUSCULAR HEMOGLOBIN 32.4 pg (28.0-32.0); MEAN CORPUSCULAR VOLUME 96.6 fL (80.0-94.0); MEAN PLATELET VOLUME 11.9 fl (7.4-10.4); MONOCYTES % 9.6 % (2.0-8.0); PLATELET 130 x1000/uL (130-400); RED BLOOD CELL COUNT 3.88 mill/uL (4.7-6.1); RED CELL DISTRIBUTION WIDTH 12.8 % (11.6-14.6)
[2019-10-03] MEDS: NICOTINE 14MG PATCH TD SCH (09:25)
[2019-10-03] MEDS: CLONIDINE 0.1MG TABLET PO PRN (09:25)
[2019-10-03 11:23] LABS: CHLORIDE 111 mEq/L (98-107)
[2019-10-03 11:32] LABS: CREATINE KINASE 113 IU/L (39-308)
[2019-10-03] MEDS: DILTIAZEM HCL 60MG TABLET PO SCH ×2 (12:36→17:13)
[2019-10-03 13:15] LABS: HEPATITIS B SURFACE AB 83.5 mIU/mL
[2019-10-03 18:35] LABS: HEPATITIS B SURFACE ANTIGEN NEGATIVE
[2019-10-04] VITALS (8 sets, daily range): BP systolic 130–159; BP diastolic 87–106
[2019-10-04] MEDS: DILTIAZEM HCL 60MG TABLET PO SCH (00:07)
[2019-10-04] MEDS: HYDROCODONE/ACETAMINOPHEN 5/325MG TABLET PO PRN ×2 (00:39→17:48)
[2019-10-04] MEDS: CLONIDINE 0.1MG TABLET PO PRN (02:02)
[2019-10-04] MEDS: DILTIAZEM HCL 90MG TABLET PO SCH ×3 (05:15→17:47)
[2019-10-04 06:35] LABS: BASOPHILS % 1.5 % (0.0-2.0); EOSINOPHILS % 3.7 % (0.0-5.0); HEMATOCRIT. 36.1 % (42.0-52.0); HEMOGLOBIN. 12.1 g/dL (14.0-18.0); LYMPHOCYTES % 53.3 % (20.0-50.0); MEAN CORPUSCULAR HEMOGLOBIN 32.4 pg (28.0-32.0); MEAN CORPUSCULAR VOLUME 96.5 fL (80.0-94.0); MONOCYTES % 11.3 % (2.0-8.0); NEUTROPHILS % 30.2 % (40.0-76.0); RED BLOOD CELL COUNT 3.74 mill/uL (4.7-6.1); RED CELL DISTRIBUTION WIDTH 12.9 % (11.6-14.6)
[2019-10-04 07:10] LABS: COMPLEMENT C3 80 mg/dL (82-167)
[2019-10-04 07:19] LABS: PHOSPHORUS 3.7 mg/dL (2.5-4.9)
[2019-10-04 08:07] LABS: HIV SCREEN 4G Non Reactive (Non Reactive)
[2019-10-04] MEDS: NICOTINE 14MG PATCH TD SCH (09:02)
[2019-10-04 11:37] LABS: PLATELET 133 x1000/uL (130-400)
[2019-10-04] MEDS: HYDRALAZINE HCL 50MG TABLET PO SCH (22:08)
[2019-10-05] VITALS (7 sets, daily range): BP systolic 140–177; BP diastolic 88–109
[2019-10-05] MEDS: DILTIAZEM HCL 90MG TABLET PO SCH ×2 (01:31→05:02)
[2019-10-05] MEDS: HYDROCODONE/ACETAMINOPHEN 5/325MG TABLET PO PRN (01:32)
[2019-10-05 05:58] LABS: PHOSPHORUS 3.8 mg/dL (2.5-4.9)
[2019-10-05 06:06] LABS: HEMATOCRIT. 39.5 % (42.0-52.0); HEMOGLOBIN. 12.9 g/dL (14.0-18.0); MEAN CORPUSCULAR HEMOGLOBIN 31.5 pg (28.0-32.0); MEAN CORPUSCULAR VOLUME 96.4 fL (80.0-94.0); RED BLOOD CELL COUNT 4.09 mill/uL (4.7-6.1); RED CELL DISTRIBUTION WIDTH 12.6 % (11.6-14.6)
[2019-10-05] MEDS: HYDRALAZINE HCL 50MG TABLET PO SCH (08:47)
[2019-10-05] MEDS: NICOTINE 14MG PATCH TD SCH (08:47)
[2019-10-05 10:07] LABS: MEAN PLATELET VOLUME 11.2 fl (7.4-10.4); PLATELET 139 x1000/uL (130-400); PLATELET ESTIMATE NORMAL
[2019-10-05] MEDS: DILTIAZEM HCL 180MG CAPSULE CD 24HR PO SCH ×2 (12:53→20:35)
[2019-10-05] MEDS: CLONIDINE 0.1MG TABLET PO PRN (17:50)
[2019-10-05] MEDS: HYDRALAZINE HCL 100MG TABLET PO SCH (20:36)
[2019-10-06] VITALS: BP 152/94
[2019-10-06] MEDS: ACETAMINOPHEN 325MG TABLET PO PRN (00:22)
[2019-10-06 04:00] VITALS: BP 144/85
[2019-10-06 08:00] VITALS: BP 135/80
[2019-10-06 08:54] LABS: BASOPHILS % 2.8 % (0.0-2.0); EOSINOPHILS % 3.7 % (0.0-5.0); HEMATOCRIT. 39.7 % (42.0-52.0); HEMOGLOBIN. 13.3 g/dL (14.0-18.0); LYMPHOCYTES % 47.5 % (20.0-50.0); MEAN CORPUSCULAR VOLUME 95.9 fL (80.0-94.0); MONOCYTES % 13.1 % (2.0-8.0); NEUTROPHILS % 32.9 % (40.0-76.0); RED BLOOD CELL COUNT 4.15 mill/uL (4.7-6.1); RED CELL DISTRIBUTION WIDTH 12.7 % (11.6-14.6)
[2019-10-06] MEDS: DILTIAZEM HCL 180MG CAPSULE CD 24HR PO SCH (09:54)
[2019-10-06] MEDS: HYDRALAZINE HCL 100MG TABLET PO SCH (09:54)
[2019-10-06] MEDS: NICOTINE 14MG PATCH TD SCH (09:55)
[2019-10-06 11:37] LABS: PLATELET 142 x1000/uL (130-400)
[2019-10-06 11:57] VITALS: BP 171/99
[2019-10-06] MEDS: CLONIDINE 0.1MG TABLET PO PRN (12:26)
[2019-10-06] MEDS ORDERED: DILT180C66 PO (12:57)
[2019-10-06] MEDS ORDERED: HYDR100T26 PO (12:57)
[2019-10-06 15:06] VITALS: BP 158/90
[2019-10-06 16:00] VITALS: BP 158/90
== END 2019-10-06 17:05 | disposition home or self-care (01) | DRG 469 ==
LOC: ER 06:57 → ENRESERV 17:04 → 5WST 18:01
PROVIDERS: ADMIT Internal Medicine; ATTEND Internal Medicine
DX: N17.0 Acute kidney failure with tubular necrosis (principal); I47.2 Ventricular tachycardia; D69.6 Thrombocytopenia, unspecified; E87.8 Other disorders of electrolyte and fluid balance, not elsewhere classified; I13.10 Hypertensive heart and chronic kidney disease without heart failure, with stage 1 through stage 4 chronic kidney disease, or unspecified chronic kidney disease; N18.3 Chronic kidney disease, stage 3 (moderate); I16.1 Hypertensive emergency; I16.0 Hypertensive urgency; F14.10 Cocaine abuse, uncomplicated; J44.9 Chronic obstructive pulmonary disease, unspecified; D72.821 Monocytosis (symptomatic); D75.89 Other specified diseases of blood and blood-forming organs; F12.10 Cannabis abuse, uncomplicated; Z82.49 Family history of ischemic heart disease and other diseases of the circulatory system; Z87.11 Personal history of peptic ulcer disease; Z88.8 Allergy status to other drugs, medicaments and biological substances; Z79.899 Other long term (current) drug therapy; Z87.891 Personal history of nicotine dependence; Z79.82 Long term (current) use of aspirin
CPT/HCPCS: 36415; 71045; 76770; 80048; 80053; 80305; 81003; 82550; 83735; 83880; 84100; 84484; 85025; 86160; 86705; 86706; 86803; 87340; 87389; 90732; 93005; 93306; 99291; J3490

== ENCOUNTER 2021-05-06 19:14 | Inpatient (IN) | payer MEDICAID ==
[~2021-05-06] VITALS: Ht 190.5 cm; Wt 89.8 kg
[~2021-05-06 19:14] MED LIST: DILT120C88 PO; DOXA4TAB2 PO; HYDR100T26 PO; MINO10TA16 PO; NITR100C MT; PANT40TA51 PO
[2021-05-06 21:01] LABS: BASOPHILS % 1.1 % (0.0-2.0); EOSINOPHILS % 4.4 % (0.0-5.0); HEMATOCRIT. 31.6 % (42.0-52.0); HEMOGLOBIN. 10.5 g/dL (14.0-18.0); LYMPHOCYTES % 43.9 % (20.0-50.0); MEAN CORPUSCULAR HEMOGLOBIN 30.9 pg (28.0-32.0); MEAN CORPUSCULAR VOLUME 93.4 fL (80.0-94.0); MEAN PLATELET VOLUME 8.8 fl (7.4-10.4); MONOCYTES % 12.7 % (2.0-8.0); NEUTROPHILS % 37.9 % (40.0-76.0); PLATELET 206 x1000/uL (130-400); RED BLOOD CELL COUNT 3.39 mill/uL (4.7-6.1); RED CELL DISTRIBUTION WIDTH 14.2 % (11.6-14.6)
[2021-05-06 21:06] LABS: CHLORIDE 110 mEq/L (98-107)
[2021-05-06] MEDS ORDERED: SODIUM CHLORIDE 0.9% 1,000 ML IV ONE ×2 (21:45)
[2021-05-06] MEDS ORDERED: KETOROLAC 15MG/ML VIAL IV ONE (22:45)
[2021-05-07 01:55] VITALS: BP 132/71
[2021-05-07] MEDS: HYDROCODONE/ACETAMINOPHEN 5/325MG TABLET PO PRN ×3 (06:51→14:54)
[2021-05-07 06:52] LABS: CHLORIDE 112 mEq/L (98-107)
[2021-05-07 07:01] LABS: BASOPHILS % 1.2 % (0.0-2.0); EOSINOPHILS % 4.9 % (0.0-5.0); HEMATOCRIT. 31.9 % (42.0-52.0); HEMOGLOBIN. 10.6 g/dL (14.0-18.0); MEAN CORPUSCULAR HEMOGLOBIN 31.3 pg (28.0-32.0); MEAN CORPUSCULAR VOLUME 94.1 fL (80.0-94.0); MEAN PLATELET VOLUME 9.4 fl (7.4-10.4); NEUTROPHILS % 35.9 % (40.0-76.0); PLATELET 191 x1000/uL (130-400); RED BLOOD CELL COUNT 3.39 mill/uL (4.7-6.1); RED CELL DISTRIBUTION WIDTH 14.2 % (11.6-14.6)
[2021-05-07 08:00] VITALS: BP 138/78
[2021-05-07] MEDS ORDERED: NALOXONE HCL 0.4MG/ML VIAL IV PRN (10:15)
[2021-05-07] MEDS ORDERED: LORAZEPAM 2MG/ML CPJ IV NR (11:15)
[2021-05-07 12:00] VITALS: BP 119/69
[2021-05-07 16:00] VITALS: BP 128/76
[2021-05-07 20:00] VITALS: BP 154/85
[2021-05-08] VITALS: BP 152/91
[2021-05-08] MEDS: HYDROCODONE/ACETAMINOPHEN 5/325MG TABLET PO PRN ×4 (00:47→18:13)
[2021-05-08] MEDS: LORAZEPAM 2MG/ML CPJ IV PRN ×2 (00:52→21:50)
[2021-05-08 04:00] VITALS: BP 159/94
[2021-05-08] MEDS: SODIUM CHLORIDE 0.9% 1,000 ML IV SCH (06:38)
[2021-05-08] MEDS: ENOXAPARIN 100MG/ML SYR SUBCUT SCH ×2 (11:06→21:50)
[2021-05-08 20:00] VITALS: BP 165/93
[2021-05-08] MEDS: AMLODIPINE 10MG TABLET PO SCH (21:49)
[2021-05-09] VITALS: BP 171/108
[2021-05-09] MEDS: CLONIDINE 0.1MG TABLET PO PRN ×2 (00:12→20:18)
[2021-05-09] MEDS: HYDROCODONE/ACETAMINOPHEN 5/325MG TABLET PO PRN ×4 (02:23→20:26)
[2021-05-09] MEDS: SODIUM CHLORIDE 0.9% 1,000 ML IV SCH (02:25)
[2021-05-09 04:00] VITALS: BP 133/82
[2021-05-09] MEDS: AMLODIPINE 10MG TABLET PO SCH (08:01)
[2021-05-09] MEDS: ENOXAPARIN 100MG/ML SYR SUBCUT SCH ×2 (08:02→20:19)
[2021-05-09 08:19] LABS: *AMPHETAMINES SCREEN URINE NEGATIVE (NEGATIVE); *BARBITURATES SCREEN URINE NEGATIVE (NEGATIVE); *BENZODIAZEPINES SCREEN URINE NEGATIVE (NEGATIVE); *COCAINE SCREEN URINE NEGATIVE (NEGATIVE); METHADONE URINE SCREEN NEGATIVE (NEGATIVE)
[2021-05-09 08:20] LABS: CANNABINOID URINE SCREEN PRESUMTIVE POSITIVE (NEGATIVE); OPIATES URINE SCREEN PRESUMTIVE POSITIVE (NEGATIVE); PHENCYCLIDINE URINE SCREEN NEGATIVE (NEGATIVE)
[2021-05-09 18:45] VITALS: BP 139/90
[2021-05-09 20:00] VITALS: BP 169/97
[2021-05-09 21:20] VITALS: BP 149/93
[2021-05-10 00:28] VITALS: BP 120/85
== END 2021-05-09 20:10 | DRG 469 ==
LOC: ER 19:14 → MICUSO 23:28 → 6EST 05-07 00:01
PROVIDERS: ADMIT Internal Medicine; ATTEND Internal Medicine
DX: N17.9 Acute kidney failure, unspecified (principal); I82.409 Acute embolism and thrombosis of unspecified deep veins of unspecified lower extremity; E87.8 Other disorders of electrolyte and fluid balance, not elsewhere classified; D64.9 Anemia, unspecified; N18.9 Chronic kidney disease, unspecified; I12.9 Hypertensive chronic kidney disease with stage 1 through stage 4 chronic kidney disease, or unspecified chronic kidney disease; G89.4 Chronic pain syndrome; R32 Unspecified urinary incontinence; Z98.1 Arthrodesis status; Z88.5 Allergy status to narcotic agent
CPT/HCPCS: 36415; 71045; 72141; 72148; 80048; 80053; 80305; 83880; 84153; 84484; 85025; 93005; 93970; 97163; 99285; J1650; J1885; J2060; J7030; G0103